=== PATIENT | male | born 1985 | race Two or more races ===

== ENCOUNTER 2019-09-09 18:26 | Emergency (ER) | payer MEDICAID ==
[~2019-09-09] VITALS: Ht 167.6 cm; Wt 86.2 kg
[2019-09-09 18:53] VITALS: BP 138/76
--- NOTE | 2019-09-09 19:34 | NUR ---
Patient discharged to home in stable condition. Rx and Written and verbal after care instructions given. Patient verbalizes understanding of instruction.
== END 2019-09-09 19:34 | disposition home or self-care (01) ==
LOC: ER 18:28
DX: L03.113 Cellulitis of right upper limb (principal); M25.512 Pain in left shoulder